=== PATIENT | male | born 1965 | race Two or more races ===

== ENCOUNTER → 2024-07-15 | Outpatient (CLI) | payer OTHER, SELFPAY ==
[2024-07-15 11:53] LABS: Prostate Specific Antigen < 0.10 ng/mL (0-4.00)
== END | disposition home or self-care (01) ==
LOC: COPL 10:36
PROVIDERS: PCP Internal Medicine; Referring Provider Urology; Visit Provider Urology
DX: C61 Malignant neoplasm of prostate (principal)
CPT/HCPCS: 36415; 84153

== ENCOUNTER → 2024-07-15 | Outpatient (BNVA) | payer OTHER, SELFPAY | END | disposition home or self-care (01) | PROVIDERS: PCP Internal Medicine; Referring Provider Internal Medicine; Visit Provider Urology | DX: N40.1 Benign prostatic hyperplasia with lower urinary tract symptoms (principal); N39.498 Other specified urinary incontinence; N13.8 Other obstructive and reflux uropathy; C61 Malignant neoplasm of prostate; N52.9 Male erectile dysfunction, unspecified; Z90.79 Acquired absence of other genital organ(s); E66.9 Obesity, unspecified; Z68.29 Body mass index [BMI] 29.0-29.9, adult; K21.9 Gastro-esophageal reflux disease without esophagitis | CPT/HCPCS: 81003; 99212; G0463 ==

== ENCOUNTER → 2024-10-13 | Outpatient (CLI) | payer OTHER, SELFPAY ==
[2024-10-13 10:46] LABS: Prostate Specific Antigen < 0.10 ng/mL (0-4.00)
== END | disposition home or self-care (01) ==
LOC: COPL 09:50
PROVIDERS: PCP Internal Medicine; Referring Provider Urology; Visit Provider Urology
DX: C61 Malignant neoplasm of prostate (principal)
CPT/HCPCS: 36415; 84153

== ENCOUNTER → 2024-10-21 | Outpatient (BNVA) | payer OTHER, SELFPAY | END | disposition home or self-care (01) | PROVIDERS: PCP Internal Medicine; Referring Provider Internal Medicine; Visit Provider Urology | DX: C61 Malignant neoplasm of prostate (principal); N39.3 Stress incontinence (female) (male); N52.9 Male erectile dysfunction, unspecified; K21.9 Gastro-esophageal reflux disease without esophagitis | CPT/HCPCS: 81003; 99212; G0463 ==

== ENCOUNTER → 2024-11-15 | Outpatient (CLI) | payer OTHER, SELFPAY ==
[2024-11-15 08:49] LABS: Alanine Aminotransferase 23 U/L (10-49); Albumin, Serum 4.4 gm/dL (3.4-4.8); Albumin/Globulin Ratio 1.5 (1.2-2.2); Alkaline Phosphatase 91 U/L (46-116); Anion Gap 6 (7-16); Aspartate Amino Transferase 21 U/L (0-34); BUN/Creatinine Ratio 21 Ratio (12-20); Bilirubin,Total 0.6 mg/dL (0.3-1.2); Blood Urea Nitrogen 21 mg/dL (9-23); Calcium 9.5 mg/dL (8.3-10.6); Calcium (Corrected) 9.5 mg/dL (8.5-10.1); Chloride 108 mMol/L (98-107); Globulin 2.9 gm/dL (2.3-3.5); Glucose 106 mg/dL (74-106); Osmolality,Calculated 286 (275-295); Potassium 4.6 mMol/L (3.4-5.1); Sodium 142 mMol/L (136-145); Total Protein 7.3 gm/dL (5.7-8.2); eGFR > 60 See Note
== END | disposition home or self-care (01) ==
LOC: COPL 07:36
PROVIDERS: PCP Internal Medicine; Referring Provider Urology; Visit Provider Urology
DX: N28.89 Other specified disorders of kidney and ureter (principal)
CPT/HCPCS: 36415; 80053

== ENCOUNTER → 2024-11-18 | Outpatient (CLI) | payer OTHER, SELFPAY ==
--- NOTE | 2024-11-18 15:30 | XR_ITS ---
Examination: MRI abdomen with intravenous contrast. MRI abdomen without intravenous contrast. Date and time of exam: November 18, [address] abdomen October 12, 2023, MRI abdomen April 09, 2023 Indications: MRI abdomen April 09, 2023 20 mm solid mass lateral margin right kidney Technique: Multiple axial, sagittal and coronal sections of the abdomen obtained. Transverse images, TR 6020, TE 107. T1 weighted transverse images, TR 582, TE 9.5. T2-weighted sagittal images, TR 4000, TE 105. T2-weighted sagittal images, TR 4000, TE 5. Coronal images, TR 4210, TE 107. Axial and coronal images are obtained post 19 cc intravenous injection, gadolinium. Findings: No focal liver lesions Gallbladder not visualized Normal common hepatic common bile duct Normal pancreas Small bilateral benign renal cysts Non enhancing mass lateral margin right kidney, 12 mm which does not show increased signal on precontrast images No adenopathy Impression: Nonenhancing mass lateral margin right kidney, 12 mm, recommend follow-up dedicated renal sonography with the radiologist in attendance
== END | disposition home or self-care (01) ==
LOC: SMRI 14:57
PROVIDERS: PCP Internal Medicine; Referring Provider Physician Assistant Surgical; Visit Provider Physician Assistant Surgical
DX: N28.89 Other specified disorders of kidney and ureter (principal)
CPT/HCPCS: 74183; A4699; A9579

== ENCOUNTER → 2025-01-17 | Outpatient (CLI) | payer OTHER, SELFPAY ==
[2025-01-17 10:07] LABS: Prostate Specific Antigen < 0.10 ng/mL (0-4.00)
== END | disposition home or self-care (01) ==
PROVIDERS: PCP Internal Medicine; Referring Provider Urology; Visit Provider Urology
DX: C61 Malignant neoplasm of prostate (principal)
CPT/HCPCS: 36415; 84153

== ENCOUNTER → 2025-01-17 | Outpatient (BNVA) | payer OTHER, SELFPAY | END | disposition home or self-care (01) | PROVIDERS: PCP Internal Medicine; Referring Provider Internal Medicine; Visit Provider Urology | DX: C61 Malignant neoplasm of prostate (principal); Z90.79 Acquired absence of other genital organ(s); N39.3 Stress incontinence (female) (male); N52.9 Male erectile dysfunction, unspecified; K21.9 Gastro-esophageal reflux disease without esophagitis | CPT/HCPCS: 81003; 99212; G0463 ==

== ENCOUNTER → 2025-03-24 | Outpatient (CLI) | payer OTHER, SELFPAY ==
[2025-03-24 10:28] LABS: Prostate Specific Antigen < 0.10 ng/mL (0-4.00)
== END | disposition home or self-care (01) ==
PROVIDERS: PCP Internal Medicine; Referring Provider Urology; Visit Provider Urology
DX: C61 Malignant neoplasm of prostate (principal)
CPT/HCPCS: 36415; 84153

== ENCOUNTER → 2025-03-28 | Outpatient (BNVA) | payer OTHER, SELFPAY | END | disposition home or self-care (01) | PROVIDERS: PCP Internal Medicine; Referring Provider Internal Medicine; Visit Provider Physician Assistant | DX: N40.1 Benign prostatic hyperplasia with lower urinary tract symptoms (principal); C61 Malignant neoplasm of prostate; N39.3 Stress incontinence (female) (male); N52.9 Male erectile dysfunction, unspecified; K21.9 Gastro-esophageal reflux disease without esophagitis | CPT/HCPCS: Q3014 ==

== ENCOUNTER → 2025-04-07 | Outpatient (CLI) | payer OTHER, SELFPAY ==
--- NOTE | 2025-04-07 08:45 | XR_ITS ---
Examination: Testicular sonography complete TECHNIQUE: Grayscale sonographic images testes, assessment arterial inflow venous outflow Date and time: April 07, 2025 0920 hours INDICATIONS: Left testicular pain beginning one year ago FINDINGS: Right testis 3.3 cm epididymis 18 mm Arterial flow testicle. No testicular mass Left testis 3.7 cm epididymis 1.0 cm Arterial flow testicle. No testicular mass Bilateral mild hydroceles IMPRESSION: No testicular torsion or testicular mass
== END | disposition home or self-care (01) ==
PROVIDERS: Referring Provider Physician Assistant; Visit Provider Physician Assistant
DX: N50.9 Disorder of male genital organs, unspecified (principal)
CPT/HCPCS: 76870

== ENCOUNTER → 2025-04-28 | Outpatient (CLI) | payer OTHER, SELFPAY ==
--- NOTE | 2025-04-28 12:34 | EKG_ITS ---
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
== END | disposition home or self-care (01) ==
PROVIDERS: PCP Internal Medicine; Referring Provider Orthopaedic Surgery; Visit Provider Orthopaedic Surgery
DX: Z01.818 Encounter for other preprocedural examination (principal)
CPT/HCPCS: 93005

== ENCOUNTER 2025-06-23 11:17 | Day surgery (SDC) | payer OTHER, SELFPAY ==
[2025-06-23] VITALS (11 sets, daily range): BP systolic 123–149; BP diastolic 82–90; PULSE 61–72; RESP 11–24; TEMP 36.4–36.8; O2SAT 93–99; BMI 28.2
[2025-06-23] MEDS: SODIUM CHLORIDE 0.9% 500 ML 500 ML 20 ML IV (12:53)
[2025-06-23] MEDS: fentaNYL CIT INJ 50 mCg/ML AMP 2ML (ASD USE ONLY) IVP (12:58)
[2025-06-23] MEDS: MIDAZOLAM INJ 1 MG/ML VIAL 2 ML (ASD USE ONLY) 2 MG IVP (12:58)
[2025-06-23] MEDS: LIDOCAINE JELLY 2% (Urojet) 10 ML TUBE TOP (13:10)
== END 2025-06-23 13:50 | disposition home or self-care (01) ==
PROVIDERS: PCP Internal Medicine; Referring Provider Specialist; Visit Provider Specialist
PROC: 0DBE8ZX Excision of Large Intestine, Via Natural or Artificial Opening Endoscopic, Diagnostic (ICD-10-PCS; CPT 45380; principal; 2025-06-23 11:45)
DX: Z12.11 Encounter for screening for malignant neoplasm of colon (principal); K64.2 Third degree hemorrhoids
CPT/HCPCS: 45398; A4649; J1200; J2250; J3010; J7999

== ENCOUNTER → 2025-07-04 | Outpatient (CLI) | payer OTHER, SELFPAY ==
[2025-07-04 12:30] LABS: Basophils # (Auto) 0.0 Thou/mm3 (0.0-0.2); Basophils % (Auto) 1 % (0-2.5); Eosinophils # (Auto) 0.5 Thou/mm3 (0.0-0.5); Eosinophils % (Auto) 8 % (0-10); Hematocrit 45.4 % (41.0-53.0); Hemoglobin 14.8 g/dL (13.5-16.0); Immature Granulocytes Auto 0.02 Thou/mm3 (0.00-0.00); Lymphocytes # (Auto) 2.1 Thou/mm3 (1.0-4.8); Lymphocytes % (Auto) 37 % (10-50); Mean Corpuscular HGB Conc 32.6 g/dl (31.0-37.0); Mean Corpuscular Hemoglobin 29.1 pg (25.0-35.0); Mean Corpuscular Volume 89 fL (80-100); Monocytes # (Auto) 0.6 Thou/mm3 (0.0-0.8); Monocytes % (Auto) 10 % (0-12); Neutrophils # (Auto) 2.5 Thou/mm3 (1.8-7.7); Neutrophils % (Auto) 44 % (37-80); Nucleated Red Blood Cell # 0.00 Thou/mm3 (0.00-0.00); Nucleated Red Blood Cell % 0 /100 WBC (0); Platelet Count 210 Thou/mm3 (140-440); RDW Standard Deviation 42.1 fL (35.1-43.9); Red Blood Count 5.08 Miln/mm3 (4.50-5.90); White Blood Count 5.7 Thou/mm3 (3.8-10.6)
[2025-07-04 12:41] LABS: Glucose Estimated Average 126 mg/dL (80-131); Hemoglobin A1C 6.0 % Hgb (4.8-6.0)
[2025-07-04 12:48] LABS: Prostate Specific Antigen < 0.10 ng/mL (0-4.00)
[2025-07-04 12:54] LABS: Alanine Aminotransferase 24 U/L (10-49); Albumin, Serum 5.0 gm/dL (3.4-4.8); Albumin/Globulin Ratio 2.1 (1.2-2.2); Alkaline Phosphatase 81 U/L (46-116); Anion Gap 9 (7-16); Aspartate Amino Transferase 27 U/L (0-34); BUN/Creatinine Ratio 12 Ratio (12-20); Bilirubin,Total 0.6 mg/dL (0.3-1.2); Blood Urea Nitrogen 12 mg/dL (9-23); Calcium 9.2 mg/dL (8.3-10.6); Calcium (Corrected) 9.2 mg/dL (8.5-10.1); Carbon Dioxide 29.0 mMol/L (20.0-31.0); Cardiac Risk Estimate 5.0 RATIO (4.0-6.7); Chloride 103 mMol/L (98-107); Cholesterol 224 mg/dL (132-200); Creatinine (Component) 1.0 mg/dL (0.6-1.3); Globulin 2.4 gm/dL (2.3-3.5); Glucose 96 mg/dL (74-106); HDL Cholesterol 45 mg/dL (40-60); LDL Cholesterol,Calculated 152 mg/dL (0-130); Osmolality,Calculated 280 (275-295); Potassium 4.4 mMol/L (3.4-5.1); Sodium 141 mMol/L (136-145); Thyroid Stimulating Hormone 1.85 uIU/mL (0.55-4.78); Total Protein 7.4 gm/dL (5.7-8.2); Triglycerides 137 mg/dL (30-150); Uric Acid 5.5 mg/dL (3.7-9.2); eGFR > 60 See Note
[2025-07-04 12:56] LABS: Vitamin B12 556 pg/mL (211-911); Vitamin D 25 Hydroxy Total 27.4 ng/mL (7.3-40.2)
[2025-07-04 13:06] LABS: Collection Type, Urine Clean Catch
[2025-07-04 14:00] LABS: Bacteria,Urine Rare; Bilirubin,Urine Negative (Negative); Blood,Urine Negative (Negative); Clarity,Urine Clear (Clear/Hazy); Color,Urine Lt-Yellow (Lt Yel-Yel); Glucose, Urine Negative (Negative); Ketones,Urine Negative (Negative); Leukocyte Esterase,Urine Positive (Negative); Nitrite,Urine Negative (Negative); PH,Urine 6.5 (5.0-7.0); Protein,Urine Negative (Neg - Trace); RBC,Urine 1 /hpf (0-3); Specific Gravity,Urine 1.014 (1.001-1.035); Squamous Epithelial Cell,Urine < 1 /hpf (0-5); Urobilinogen,Urine Negative mg/dL (0.0-1.0); WBC,Urine 6 /hpf (0-5)
== END | disposition home or self-care (01) ==
LOC: COPL 11:29
PROVIDERS: PCP Internal Medicine; Referring Provider Internal Medicine; Visit Provider Physician Assistant
DX: Z00.00 Encounter for general adult medical examination without abnormal findings (principal); R97.20 Elevated prostate specific antigen [PSA]
CPT/HCPCS: 36415; 80053; 80061; 81001; 82306; 82607; 83036; 84153; 84443; 84550; 85025

== ENCOUNTER → 2025-07-25 | Outpatient (BNVA) | payer OTHER, SELFPAY | END | disposition home or self-care (01) | PROVIDERS: PCP Internal Medicine; Referring Provider Internal Medicine; Visit Provider Physician Assistant | DX: N40.1 Benign prostatic hyperplasia with lower urinary tract symptoms (principal); C61 Malignant neoplasm of prostate; N28.9 Disorder of kidney and ureter, unspecified; N39.3 Stress incontinence (female) (male); N52.9 Male erectile dysfunction, unspecified | CPT/HCPCS: Q3014 ==

== ENCOUNTER 2025-09-05 01:25 | Emergency (ER) | payer OTHER, SELFPAY ==
[2025-09-05 01:33] VITALS: BP 127/87; PULSE 124; RESP 18; TEMP 39.6; O2SAT 92
--- NOTE | 2025-09-05 01:48 | EKG_ITS ---
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
--- NOTE | 2025-09-05 01:49 | XR_ITS ---
Examination: CT abdomen and pelvis without contrast. Coronal 3-D reconstructions. Sagittal 2-D reconstructions. Date and time of exam: September 05, 2025, 0200 hours INDICATIONS: Fever flank pain headaches body aches beginning today, clinical diagnosis kidney stones CTDI: vol (mGy): 7.23 DLP: (mGycm): 455 Technique: Axial images of the abdomen have been obtained, 3 mm slice thickness Intravenous contrast material has not been administered. Low dose protocols were performed. One or more of the following dose reduction techniques were used; automated exposure control, adjustment of the mA and/or KV according to patient size, use of iterative reconstruction technique. Findings: Bibasilar atelectasis Heavy calcification left anterior descending and left circumflex right coronary arteries Mild enlargement cardiac contour Fatty infiltration throughout the liver. Absent gallbladder Spleen is not enlarged No adrenal mass Mild renal scarring Bilateral renal calculi, the largest lower pole left kidney 7 mm No significant hydronephrosis, no ureteral calculi Hypodense mass posterior lateral left kidney 19 mm, probably cyst Aorta normal size No bowel obstruction or diverticulitis The appendix, coronal image 74 is thickened, 7 mm but no periappendiceal inflammatory change noted Abundant stool in the rectum Contracted urinary bladder Advanced degenerative disc disease L5-S1 IMPRESSION: Bilateral renal calculi Considerable perinephric stranding, consider bilateral pyelonephritis The appendix is mildly thickened but without definite periappendiceal inflammatory change, the appearance should be clinically correlated Recommend renal sonography to confirm 19 mm left renal cyst
--- NOTE | 2025-09-05 01:54 | PD.EDURI ---
Upper Respiratory Inf. RME/HPI General Chief Complaint: Flu Like Symptoms Stated Complaint: FEVER,HEADACHE,BODYACHES Time Seen by Provider: 09/05/25 06:50 Arrival date/time: 09/05/25 01:25 RME / HPI RME / HPI Narrative: 59-year-old male with past medical history of prostate cancer, s/p prostatectomy, previous treated for C. diff, presented to ED with chills, fever, sore throat. Reports symptoms started about a week ago with soreness and tingling sensation in his throat. Over the last few days has been having recurrent chills and fevers of 102 despite taking TYLENOL. He also reports feeling nauseous over the last few days of but denies vomiting or diarrhea or abdominal pain. at bedside had noted blood and a small blood clot in his diaper this morning. Although he denies urinary symptoms including burning sensation, urinary urgency or frequency or hematuria. Denies recent travel or sick exposure. Denies headaches, chest pain, sob, cough, other GI or urinary symptoms. He has a history of kideney stones and right renal mass (see MRI from 11/18/2024) for which he follows up with Dr. Flores and Dr. Box for serial CT. Per a bedside, last CT was 6 months ago and shows no changes in the size of the mass. On presentation, sepsis alert was called for T103.2 and HR 127. BP 127/87, satting 92% on room air. Negative COVID and influenza workup. CBC remarkable for WBC 14.1 and PLT 90. CHEM panel showed sodium 133, mild ANT with creatinine 1.4 and GFR 57, GLUCOSE 168, normal lipase. UA showed WBC 7, leukocyte esterase, 2+ ketones and 1+ urine blood. EKG showed sinus tachycardia without acute ST changes. CXR showed right basilar lung atelectasis. CT abdominal pelvis showed left perinephric fat stranding suggestive of possible left pyelonephritis, there is also signs of early acute appendicitis, mild bilateral lung consolidations (likely atelectasis, denies respiratory symptoms), and a left renal cyst. Blood cultures have been collected. Given ZOSYN and DOXYCYCLINE x 1. He was given 2 L NS bolus with improvement of heart rate. Pending repeat renal panel to follow ANT. As of now, likely source of infection pneumonia versus early acute pancreatitis versus early pyelonephritis (although low WBCs on UA). Hospitalist team was consulted who will reevaluate for possible admission once repeat renal panel is back. General surgery, Dr. Saez was consulted for evaluate of possible acute appendicitis, awaiting evaluation and recommendations. Radha Angeles, DO Exam: Pale appearance, in mild distress, breathing well on room air. Tenderness to palpation over left flank. Mild tenderness palpation in right lower quadrant. Related Data Home Medications ?Medication ?Instructions ?Recorded ?Confirmed acetaminophen 500 mg tablet 1,000 mg PO Q6H PRN pain 06/22/25 07/25/25 (Acetaminophen Extra Strength) Previous Rx's ?Medication ?Instructions ?Recorded levofloxacin 500 mg tablet 500 mg PO Q24H 10 days #10 tabs 09/05/25 Allergies Allergy/AdvReac Type Severity Reaction Status Date / Time hydromorphone (From Dilaudid) Allergy Severe Hallucinati Verified 09/05/25 01:26 ng morphine Allergy Hallucinati Verified 09/05/25 01:26 ng Review of Systems Review of Systems Narrative Review of Systems: GENERAL: + fevers/chills, no diaphoresis. HEENT: Denies headache or visual/hearing changes. Denies nasal discharge. NEURO: Denies unusual weakness or difficulty speaking. CARDIO: Denies chest pain or palpitations. PULM: Denies SOB, coughing, or wheezing. GI: Denies abdominal pain, +nausea. No V/C/D/reflux/gas, bright red blood per rectum or melena. Reports having BMs. URO: Denies burning/itching/pain/urinary changes. MSK/EXT/SKIN: Denies joint/skeletal/muscle pain, issues/changes in upper or lower extremities, itchiness, or superficial pain. PSYCH: Cooperative, pleasant mood & affect. The rest of the review of systems is otherwise negative. ED Exam Narrative Physical exam: GENERAL Normal appearing male, anxious and in mild distress HEENT NCAT.?AUTUMN. Oral mucosa is moist. Patent Nares NECK Supple, nontender, no JVD. CHEST RRR, no m/g/r CTAB, no w/r/r, symmetrical expansion. ABDOMEN Soft, flat, RLQ tenderness to deep palpation. No guarding/rebound tenderness/masses. Bowel sounds presents Left CVA tenderness to percussion. EXTREMITIES No edema/cyanosis.? SKIN Pale skin. Warm and dry, no jaundice/rashes. NEUROMUSCULAR No lumbar or midline, no CVA, no paraspinal muscle spasm or tenderness. Moves all 4 extremities well, with full ROM and good CSM. RICO x4, CN II-XII grossly intact. No focal neurologic deficits. PSYCHIATRY Normal mood and affect, cooperative, no SI or HI or hallucinations. Course Quality Measures none Orders Category Date Time Status Bedside COVID-19 Antigen Test NOW Care 09/05/25 01:48 Completed Bedside Influenza A&B Antigen Test NOW Care 09/05/25 01:48 Completed NPO NOW Care 09/05/25 05:59 Completed Consult to General Surgery Stat Cons 09/05/25 06:02 Ordered Diet NPO (NOW) Diet 09/05/25 05:[address] abdomen pelvis wo con Stat Exams 09/05/25 01:49 Completed CXR [XR chest 1V] Stat Exams 09/05/25 03:10 Completed CBC Stat Lab 09/05/25 02:11 Completed CMP [Comprehensive Metabolic Panel] Stat Lab 09/05/25 02:11 Completed Lactate (Lactic Acid) Stat Lab 09/05/25 02:11 Completed Lipase Stat Lab 09/05/25 02:11 Completed PTT [Partial Thromboplastin Time] Stat Lab 09/05/25 02:11 Completed Prothrombin Time with INR Stat Lab 09/05/25 02:11 Completed Renal Function Panel Stat Lab 09/05/25 04:46 Completed Urinalysis Stat Lab 09/05/25 02:57 Completed Acetaminophen Tab [Tylenol Tab] Med 09/05/25 01:49 Discontinued 650 mg PO X1 ONE Doxycycline [Vibramycin] Med 09/05/25 05:19 Discontinued 100 mg PO X1 ONE Ondansetron Inj [Zofran Inj] Med 09/05/25 05:59 Discontinued 4 mg IVP Q8HR PRN Piper/Tazo Inj [Zosyn Inj] 4.5 gm Med 09/05/25 04:14 Discontinued Sodium Chloride 0.9% (Pop) [NS 0.9% mini bag] 100 ml IV X1 Sodium Chloride 0.9% 1000 ml [Ns] 1,000 ml Med 09/05/25 06:00 Discontinued IV 100 mls/hr Sodium Chloride 0.9% 1000 ml [Ns] 1,000 ml Med 09/05/25 03:30 Discontinued IV 125 mls/hr Sodium Chloride 0.9% 1000 ml [Ns] 1,000 ml Med 09/05/25 02:00 Discontinued IV 9,999 mls/hr Sodium Chloride 0.9% 1000 ml [Ns] 1,000 ml Med 09/05/25 02:11 Discontinued IV 999 mls/hr Sodium Chloride 0.9% 1000 ml [Ns] 1,000 ml Med 09/05/25 03:45 Discontinued IV 999 mls/hr EKG (RT) Stat RT 09/05/25 01:48 Draft Vital Signs Vital signs: Vital Signs Temperature 103.2 F H 09/05/25 01:33 Pulse Rate 124 H 09/05/25 01:33 Respiratory Rate 18 09/05/25 01:33 Blood Pressure 127/87 H 09/05/25 01:33 Pulse Oximetry (%) 92 L 09/05/25 01:33 Oxygen Delivery Method Room Air 09/05/25 01:33 Upper Respiratory Infection Patient data External records reviewed:: [facility] previous records Clinical information provided by:: patient Social determinants that could affect healthcare access:: alcohol use Patient has the following chronic illnesses:: prostate cancer s/p prostectomy How is presenting disease/condition affected by chronic disease/condition?: no chronic disease Evaluation data The following diagnostics were reviewed and interpreted by me:: lab results and radiology exam(s) Lab and/or radiology exams considered but not ordered:: NA Interpretation Summary: NA Medications / Prescriptions Medications or Prescriptions considered but not ordered:: NA Medication administrations:: Medication Administration History Discontinued Medications Acetaminophen (Acetaminophen 325 Mg Tablet) 650 mg PO X1 ONE Stop: 09/05/25 01:50 Last Admin: 09/05/25 02:48 Dose: Not Given Documented By: NILSON Non-Admin Reason: Patient Refused Comments: Pt took 1000 mg at home prior to coming Doxycycline Hyclate (Doxycycline 100 Mg Tablet) 100 mg PO X1 ONE Stop: 09/05/25 05:20 Last Admin: 09/05/25 05:37 Dose: 100 mg Documented By: NILSON Sodium Chloride (Ns) 1,000 mls @ 9,999 mls/hr IV .Q6M ROB Stop: 10/05/25 01:59 Last Admin: 09/05/25 02:17 Dose: Not Given Documented By: TEQUILA Non-Admin Reason: Cancelled by Provider Admin: 09/05/25 02:17 Dose: Not Given Documented By: EE Non-Admin Reason: Cancelled by Provider Sodium Chloride (Ns) 1,000 mls @ 999 mls/hr IV .Q1H1M ONE Stop: 09/05/25 03:11 Last Infusion: 09/05/25 03:49 Dose: Infused Documented By: Admin: 09/05/25 02:25 Dose: 999 mls/hr Documented By: EE Sodium Chloride (Ns) 1,000 mls @ 125 mls/hr IV .Q8H [facility] Stop: 10/05/25 03:29 Last Admin: 09/05/25 06:24 Dose: Not Given Documented By: EB Non-Admin Reason: Cancelled by Provider Sodium Chloride (Ns) 1,000 mls @ 999 mls/hr IV .Q1H1M ONE Stop: 09/05/25 04:45 Last Infusion: 09/05/25 05:15 Dose: Infused Documented By: Admin: 09/05/25 03:48 Dose: 999 mls/hr Documented By: EB Piperacillin Sod/Tazobactam (Sod 4.5 gm/ Sodium Chloride) 100 mls @ 200 mls/hr IV X1 ONE; Protocol Stop: 09/05/25 04:43 Last Infusion: 09/05/25 05:14 Dose: Infused Documented By: Admin: 09/05/25 04:38 Dose: 200 mls/hr Documented By: EB Sodium Chloride (Ns) 1,000 mls @ 100 mls/hr IV .Q10H [facility] Stop: 10/05/25 05:59 Last Admin: 09/05/25 06:53 Dose: Not Given Documented By: EB Non-Admin Reason: Cancelled by Provider Ondansetron HCl (Ondansetron Inj 2 Mg/Ml Inj 2 Ml) 4 mg IVP Q8HR PRN; Protocol PRN Reason: NAUSEA OR VOMITING Stop: 10/05/25 05:58 NA Consultations Consultation(s) initiated? (list below): Yes Diagnosis Upper Respiratory Differential Diagnosis: other (? early acute pancreatitis) Most likely diagnosis given after review of the tests above:: early acute pancreatitis vs PNA vs left pylonephritis Admission Indicated Admission indicated?: indicated Admission Request Was there a request for admission?: Yes Admission Attestation Admission request attestation: Discussed case with [] from Hospitalist service regarding admission. Discussed patients ED course, exam findings, labs, and radiology results. The Hospitalist [agrees,declines] to accept the patient for admission. Disposition Plan Disposition Plan: other (specify) (Pending general surgery recommendation) Discharge Plan Plan Patient Disposition: HOME (Self Care) Patient condition on transfer: Stable Prescriptions/Referrals Prescriptions/Med Rec: New levofloxacin 500 mg tablet 500 mg PO Q24H 10 Days Qty: 10 0RF No Action acetaminophen [Acetaminophen Extra Strength] 500 mg tablet 1,000 mg PO Q6H PRN (Reason: pain) Referrals: No Primary/Family,Physician [Referring Provider] - In 1 week Problem List Clinical Impression: Fever, Pharyngitis, Acute UTI Patient/Caregiver Discharge Instructions Discharge Activity: activity as tolerated Education Materials: Urinary Tract Infections in Men, Self-Care for Sore Throats, Preventing Common Respiratory ... Additional Instructions: Take Levaquin 500 milligrams once daily for ten days. Follow-up with your primary care doctor in 1 day. Return to the ER if any concerns. Print Language: Filipino Stand Alone Forms: Mary Award Info., Patient Portal Info Letter
[2025-09-05 02:17] VITALS: BP 130/89; PULSE 114; RESP 17; TEMP 37.9; O2SAT 93
[2025-09-05 02:23] LABS: Basophils # (Auto) 0.0 Thou/mm3 (0.0-0.2); Basophils % (Auto) 0 % (0-2.5); Eosinophils # (Auto) 0.0 Thou/mm3 (0.0-0.5); Eosinophils % (Auto) 0 % (0-10); Hematocrit 43.5 % (41.0-53.0); Hemoglobin 14.8 g/dL (13.5-16.0); Immature Granulocytes Auto 0.06 Thou/mm3 (0.00-0.00); Lymphocytes # (Auto) 0.8 Thou/mm3 (1.0-4.8); Lymphocytes % (Auto) 6 % (10-50); Mean Corpuscular HGB Conc 34.0 g/dl (31.0-37.0); Mean Corpuscular Hemoglobin 29.4 pg (25.0-35.0); Mean Corpuscular Volume 87 fL (80-100); Monocytes # (Auto) 1.6 Thou/mm3 (0.0-0.8); Monocytes % (Auto) 11 % (0-12); Neutrophils # (Auto) 11.7 Thou/mm3 (1.8-7.7); Neutrophils % (Auto) 83 % (37-80); Nucleated Red Blood Cell # 0.00 Thou/mm3 (0.00-0.00); Nucleated Red Blood Cell % 0 /100 WBC (0); Platelet Count 90 Thou/mm3 (140-440); RDW Standard Deviation 41.1 fL (35.1-43.9); Red Blood Count 5.03 Miln/mm3 (4.50-5.90); White Blood Count 14.1 Thou/mm3 (3.8-10.6)
[2025-09-05] MEDS: SODIUM CHLORIDE 0.9% 1000 ML 1,000 ML 999 ML IV ×2 (02:25→03:48)
[2025-09-05 02:35] LABS: Lactate (Lactic Acid) 2.0 mMol/L (0.4-2.0)
[2025-09-05 02:38] LABS: INR 1.1 (0.9-1.3); Partial Thromboplastin Time 31.6 Seconds (22.0-36.0); Prothrombin Time 11.3 Seconds (9.0-12.2)
[2025-09-05 02:44] LABS: Alanine Aminotransferase 26 U/L (10-49); Albumin, Serum 4.8 gm/dL (3.4-4.8); Albumin/Globulin Ratio 1.6 (1.2-2.2); Alkaline Phosphatase 67 U/L (46-116); Anion Gap 10 (7-16); Aspartate Amino Transferase 28 U/L (0-34); BUN/Creatinine Ratio 12 Ratio (12-20); Bilirubin,Total 0.8 mg/dL (0.3-1.2); Blood Urea Nitrogen 17 mg/dL (9-23); Calcium 9.2 mg/dL (8.3-10.6); Calcium (Corrected) 9.2 mg/dL (8.5-10.1); Carbon Dioxide 24.6 mMol/L (20.0-31.0); Chloride 98 mMol/L (98-107); Creatinine (Component) 1.4 mg/dL (0.6-1.3); Globulin 3.0 gm/dL (2.3-3.5); Glucose 168 mg/dL (74-106); Lipase 31 U/L (12-53); Osmolality,Calculated 271 (275-295); Potassium 4.1 mMol/L (3.4-5.1); Sodium 133 mMol/L (136-145); Total Protein 7.8 gm/dL (5.7-8.2); eGFR 57 See Note
[2025-09-05 02:59] LABS: Collection Type, Urine Clean Catch
[2025-09-05 03:01] LABS: Bilirubin,Urine Negative (Negative); Blood,Urine 1+ (Negative); Clarity,Urine Turbid (Clear/Hazy); Color,Urine Yellow (Lt Yel-Yel); Glucose, Urine Negative (Negative); Ketones,Urine 2+ (Negative); Leukocyte Esterase,Urine Positive (Negative); Nitrite,Urine Negative (Negative); PH,Urine 6.0 (5.0-7.0); Protein,Urine 2+ (Neg - Trace); RBC,Urine 3 /hpf (0-3); Specific Gravity,Urine 1.035 (1.001-1.035); Squamous Epithelial Cell,Urine 1 /hpf (0-5); Urobilinogen,Urine Negative mg/dL (0.0-1.0); WBC,Urine 7 /hpf (0-5)
--- NOTE | 2025-09-05 03:10 | XR_ITS ---
EXAMINATION: AP chest single view TECHNIQUE: AP portable upright chest single view Date and time: September 05, 2025, 0313 hours, comparison March 04, 2023 INDICATIONS: Chills fever sore throat beginning 1 week ago FINDINGS: Subsegmental atelectasis right base Moderate elevation right hemidiaphragm. Normal heart size No lobar pneumonia or pulmonary edema Mild osteopenia IMPRESSION: No lobar pneumonia or pulmonary edema
--- NOTE | 2025-09-05 03:31 | PRELIM_ITS ---
CT scan of the abdomen and pelvis without intravenous contrast (axial sections with sagittal and coronal reformats) September 05, 2025 0200 hours Clinical History: Rule out nephrolithiasis /pylo Comparison: None available at the time of this report. Findings: Mild bilateral lung consolidations, atelectasis versus pneumonia. The liver, gallbladder, pancreas, spleen, and adrenals are unremarkable on this noncontrast study. Nonobstructive bilateral kidney stones. Left renal cystic lesion measuring 1.9 cm. Left perinephric fat stranding. No evidence of bowel obstruction. Thickening of the appendix measuring up to 0.8 cm without peripheral fat stranding, no perforation, no collections. There is no mesenteric or retroperitoneal adenopathy. The urinary bladder is nondistended, limited evaluation. There is no free fluid or free air. The osseous structures are unremarkable. Impression: 1. Left perinephric fat stranding, consider left pyelonephritis in the differential diagnosis. 2. Thickening of the appendix suspicious for early acute appendicitis. Please, correlate clinically. 3. Mild bilateral lung consolidations, atelectasis versus pneumonia. 4. Nonobstructing bilateral nephrolithiasis. 5. Left renal cystic lesion, consider follow-up for characterization. Report Electronically Signed By: Parker Cole 09/05/2025 3:31:10 AM [EST]
[2025-09-05 04:28] VITALS: BP 124/76; PULSE 87; RESP 17; TEMP 37; O2SAT 95
[2025-09-05] MEDS: PIPER/TAZO INJ 4.5 GM in SODIUM CHLORIDE 0.9% (POP) 100 ML IV (04:38)
[2025-09-05 05:34] LABS: Albumin, Serum 3.8 gm/dL (3.4-4.8); Anion Gap 10 (7-16); BUN/Creatinine Ratio 14 Ratio (12-20); Blood Urea Nitrogen 17 mg/dL (9-23); Calcium 7.7 mg/dL (8.3-10.6); Calcium (Corrected) 7.9 mg/dL (8.5-10.1); Carbon Dioxide 23.3 mMol/L (20.0-31.0); Chloride 104 mMol/L (98-107); Creatinine (Component) 1.2 mg/dL (0.6-1.3); Glucose 147 mg/dL (74-106); Osmolality,Calculated 278 (275-295); Phosphorous 2.2 mg/dL (2.4-5.1); Potassium 3.9 mMol/L (3.4-5.1); Sodium 137 mMol/L (136-145); eGFR > 60 See Note
[2025-09-05] MEDS: DOXYCYCLINE 100 MG TABLET PO (05:37)
[2025-09-05 06:16] VITALS: BP 121/72; PULSE 74; RESP 17; TEMP 37; O2SAT 95
--- NOTE | 2025-09-05 06:54 | PC.NURSE ---
Left lung field has fine crackles that were not there initially on my triage assessment, Pt already received 2 liters MD consulted and will hold off IVF for now
--- NOTE | 2025-09-05 08:34 | EDNOTE_ITS ---
Emergency Room Addendum <Bryan Chopra MD - Last Filed: 09/05/25 08:41> Addendum Narrative: Care assumed from , the previous shift emergency physician. Past medical, surgical, social and family history reviewed. Vitals and home medications reviewed. Results and treatment plan discussed. I will assume the care of the patient at this time and will follow the patient. Dr Garcia of general surgery saw the patient to evaluate for questionable acute appendicitis. He felt there was no appendicitis and patient can be discharged home on antibiotics since he has a persistent fever. Chest x-ray shows right lower lobe atelectasis and the right hemidiaphragm is elevated. White count is 14.1. Urine showed 7 WBCs and positive leukocyte esterase. Please refer to the emergency department record for history and examination from initial visit. Assessment is acute febrile illness, pharyngitis, UTI, leukocytosis, right lower lobe atelectasis. Will send the patient home on Levaquin 500 milligrams once daily. Follow-up with his primary care doctor in 1 day. Return to the ER if an y concerns <Isis Wooten - Last Filed: 09/05/25 10:09> Addendum Narrative: Care assumed from resident Dr. Angeles working with Dr. Galo. Past medical, surgical, social and family history reviewed. Vitals and home medications reviewed. Results and treatment plan discussed. I will assume the care of the patient at this time and will follow the patient. Please refer to the emergency department record for history and examination from initial visit. Dr Garcia of general surgery saw the patient to evaluate for questionable acute appendicitis. He felt there was no appendicitis and patient can be discharged home on antibiotics since he has a persistent fever. Chest x-ray shows right lower lobe atelectasis and the right hemidiaphragm is elevated. White count is 14.1. Urine showed 7 WBCs and positive leukocyte esterase. Assessment is acute febrile illness, pharyngitis, UTI, leukocytosis, right lower lobe atelectasis. Will send the patient home on Levaquin 500 milligrams once daily. Follow-up with his primary care doctor in 1 day. Return to the ER if any concerns
== END 2025-09-05 08:56 | disposition home or self-care (01) ==
PROVIDERS: Emergency Provider Family Medicine; PCP Internal Medicine
DX: J02.9 Acute pharyngitis, unspecified (principal); N39.0 Urinary tract infection, site not specified; J98.11 Atelectasis; R10.A0 Flank pain, unspecified side
CPT/HCPCS: 36415; 71045; 74176; 80053; 80069; 81001; 83605; 83690; 85025; 85610; 85730; 87502; 87635; 87651; 93005; 96361; 96365; 99284; J2543; J3490; J7030; A9270